=== PATIENT | female | born 1990 | race Caucasian/White ===

== ENCOUNTER → 2019-04-01 | Outpatient (CLI) | payer MEDICAID ==
[~2019-04-01] MED LIST: ADVIL 200MG TA200 MG PO; AMOXICILLIN 50500 MG PO; AMOXICILLIN875 MG PO; BACTRIM DS 8001 TAB PO; BCP; BCP TD; CEFTIN500 MG PO; CEPHALEXIN500 M1 PO; CIPRO 500MG TA500 MG PO; CLEOCIN HC150 MG/CAP PO; FUNGAL CREAM; IBU800 M1 PO; IMPLANON68 MG ID; NO HOME MEDICATIONS; NORCO 325 MG-51 TAB PO; NORCO 325 MG-7.1 TAB PO; PEN-VEE K500 MG PO; PHENERGAN 25 TA25 MG PO; PREDNISONE20 MG PO; ULTRAM 50MG TAB50 MG PO; ZITHROMAX Z PA250 MG PO
== END ==
LOC: COL.RAD 14:55
DX: T71.194A Asphyxiation due to mechanical threat to breathing due to other causes, undetermined, initial encounter (principal); G43.909 Migraine, unspecified, not intractable, without status migrainosus; M27.40 Unspecified cyst of jaw; M54.2 Cervicalgia; H92.02 Otalgia, left ear
CPT/HCPCS: Q9967